=== PATIENT | male | born 1960 | race Caucasian/White ===

== ENCOUNTER 2016-08-04 00:26 | Emergency (ER) | payer OTHER ==
[2016-08-04] MEDS ORDERED: diphenhydrAMINE INJ 50 MG/ML VIAL IM STA (00:51)
[2016-08-04] MEDS ORDERED: diphenhydrAMINE INJ 50 MG/ML VIAL ONE (00:53)
== END 2016-08-04 01:41 | disposition home or self-care (01) ==
DX: L50.0 Allergic urticaria (principal)

== ENCOUNTER 2016-09-09 11:32 | Outpatient (CLI) | payer OTHER | END 2016-09-09 11:33 | disposition home or self-care (01) | DX: M54.5 Low back pain (principal) ==

== ENCOUNTER 2017-09-15 09:56 | Day surgery (SDC) | payer OTHER ==
[2017-09-15] MEDS ORDERED: LACTATED RINGERS 1,000 ML IV ONE ×2 (10:33→12:00)
[2017-09-15] MEDS ORDERED: MIDAZOLAM 2 MG/2 ML VIAL IVP ONE (11:12)
[2017-09-15] MEDS ORDERED: fentaNYL 250 MCG/5 ML VIAL IVP ONE (11:12)
[2017-09-15] MEDS ORDERED: PROPOFOL 200 MG/20 ML VIAL IVP ONE (12:05)
[2017-09-15 12:31] VITALS: BP 111/75
== END 2017-09-15 09:57 | disposition home or self-care (01) ==
LOC: SDS 09:56
PROVIDERS: ATTEND Surgery
PROC: 0DBL8ZX Excision of Transverse Colon, Via Natural or Artificial Opening Endoscopic, Diagnostic (ICD-10-PCS; 2017-09-15)
PROC: 0DBH8ZX Excision of Cecum, Via Natural or Artificial Opening Endoscopic, Diagnostic (ICD-10-PCS; 2017-09-15)
PROC: 0DBK8ZX Excision of Ascending Colon, Via Natural or Artificial Opening Endoscopic, Diagnostic (ICD-10-PCS; principal; 2017-09-15 11:15)
DX: Z12.11 Encounter for screening for malignant neoplasm of colon (principal); D12.0 Benign neoplasm of cecum; D12.2 Benign neoplasm of ascending colon; D12.3 Benign neoplasm of transverse colon; K64.8 Other hemorrhoids
CPT/HCPCS: 45384; J3010; J7120

== ENCOUNTER 2017-10-15 13:05 | Outpatient (CLI) | payer OTHER ==
[~2017-10-15 13:05] MED LIST: GADOBUTROL 7.5 MMOL/7.5 ML VIAL ONE
--- NOTE | 2017-10-16 12:27 | MRI Report ---
Procedure Date: 10/15/2017 Accession Number: [id number] / [id number] Procedure: MRI - Lumbar Spine W/WO CPT Code: FULL RESULT: EXAM: MRI LUMBAR SPINE WITHOUT AND WITH CONTRAST EXAM DATE: 10/15/2017 02:09 PM. CLINICAL HISTORY: Low back pain. L5-S1 fusion 2 years ago. COMPARISONS: Lumbar spine plain films 09/09/2016. TECHNIQUE: Multiplanar, multisequence T1-weighted and fluid-sensitive sequences of the lumbar spine from T12 to S1 before and after administration of intravenous contrast. Other: None. IV contrast: 7.5 mL Gadavist. FINDINGS: Spinal Cord: The conus terminates at L1. The conus medullaris and cauda equina are unremarkable. The spinal canal is adequate. No abnormal enhancement is seen. Alignment: No scoliosis or spondylolisthesis. Bone Marrow: Five [id number] lumbar vertebral bodies are assumed. No gross fractures or bone lesions. No bone marrow edema or abnormal enhancement. Disk Levels/Facets: T12-L1: Unremarkable on sagittal series. L1-L2: Unremarkable. L2-L3: Unremarkable. L3-L4: Unremarkable. L4-L5: Mild loss of disk space height is seen. Mild circumferential disk bulge is noted. Small left lateral foraminal disk protrusion and annular fissure is seen. Effacement of exited left L4 nerve root lateral to the foramen is seen. No stenosis. L5-S1: Postoperative change from anterior interbody fusion is noted. Normal alignment. No stenosis. Spinal Canal: No enhancing masses within the spinal canal. No epidural abscess. Musculature: Normal. No edema, abnormal enhancement, or fatty atrophy. Other: The visualized retroperitoneum is unremarkable. IMPRESSION: 1. L5-S1: Postoperative change from anterior fusion. No stenosis. 2. L4-L5: Mild degenerative disk change. Left lateral foraminal disk protrusion and annular fissure. This effaces the exited left L4 nerve root lateral to the foramen. Comment: The following findings are so common in adults without low back pain that while we report their presence, they must be interpreted with caution and in the context of the clinical situation. (Reference Autumnk et al, Spine 2001) Prevalence of findings in patients without low back pain: Disk degeneration (any evidence): 92% Disk desiccation/T2 signal loss: 83% Disk height loss: 56% Disk bulge: 64% Disk protrusion: 32% Annular tear/high intensity zone: 38% RADIA
== END 2017-10-15 13:06 | disposition home or self-care (01) ==
LOC: DI 13:05
PROVIDERS: ATTEND Physician Assistant
DX: M51.26 Other intervertebral disc displacement, lumbar region (principal); M51.36 Other intervertebral disc degeneration, lumbar region
CPT/HCPCS: 72158; A9585

== ENCOUNTER 2018-04-14 14:37 | Outpatient (CLI) | payer OTHER ==
[2018-04-14 15:27] LABS: CREATININE 1.2 mg/dL (0.6-1.2)
== END 2018-04-14 14:38 | disposition home or self-care (01) ==
LOC: LAB 14:37
PROVIDERS: ATTEND Physician Assistant Medical
DX: Z79.899 Other long term (current) drug therapy (principal); B35.1 Tinea unguium
CPT/HCPCS: 36415; 82565; 84450; 84460

== ENCOUNTER 2018-05-20 11:49 | Outpatient (CLI) | payer OTHER ==
[2018-05-20 16:07] LABS: CREATININE 1.1 mg/dL (0.6-1.2)
== END 2018-05-20 11:50 | disposition home or self-care (01) ==
LOC: LAB 11:49
PROVIDERS: ATTEND Physician Assistant Medical
DX: B35.1 Tinea unguium (principal); Z79.899 Other long term (current) drug therapy
CPT/HCPCS: 36415; 82565; 84450; 84460

== ENCOUNTER 2018-07-13 08:00 | Outpatient (CLI) | payer OTHER | END 2018-07-13 23:59 | LOC: LAB.R 08:00 | PROVIDERS: ATTEND Internal Medicine | DX: J02.9 Acute pharyngitis, unspecified (principal) | CPT/HCPCS: 87070; 87430 ==

== ENCOUNTER 2018-07-14 13:51 | Outpatient (CLI) | payer OTHER ==
[2018-07-14 14:13] LABS: CREATININE 1.1 mg/dL (0.6-1.2)
== END 2018-07-14 13:52 | disposition home or self-care (01) ==
LOC: LAB 13:51
PROVIDERS: ATTEND Physician Assistant Medical
DX: B35.1 Tinea unguium (principal); Z79.899 Other long term (current) drug therapy
CPT/HCPCS: 36415; 82565; 84450; 84460

== ENCOUNTER 2021-03-06 12:53 | Emergency (ER) | payer OTHER ==
[2021-03-06 13:03] VITALS: BP 143/79
[2021-03-06] MEDS ORDERED: HYDROmorphone 1 MG/ML CARPUJECT IM STA (15:13)
--- NOTE | 2021-03-06 15:18 | ED Physician Documentation ---
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 He has a history of chronic back pain and has undergone an L5 is S1 disc fusion. He recently spent 3 weeks in [facility] where he was hiking, traveling and was on some bumpy boat rides but denies any falls or trauma. He flew back from [facility] to [facility] yesterday. He reports that once he landed at [facility] he had severe right-sided low back pain. This is worse than his normal. He does see a paint technician but is out of his Newberry as he ran out while traveling. He has been unable to get in touch with his paint technician. Denies any saddle anesthesia or fevers. He has no loss of bowel or bladder function or incontinence. No paresthesias or leg weakness. Review of Systems Constitutional: denies: Fever, Chills Eyes: reports: Reviewed and negative Nose: reports: Reviewed and negative Throat: reports: Reviewed and negative Cardiac: reports: Reviewed and negative Respiratory: reports: Reviewed and negative GI: denies: Abdominal Pain, Nausea, Vomiting : denies: Dysuria, Frequency, Hematuria Skin: reports: Reviewed and negative Musculoskeletal: reports: Back pain. denies: Extremity pain, Joint pain Neurologic: denies: Generalized weakness, Focal weakness, Numbness, Syncope, Headache Psychiatric: reports: Reviewed and negative PD PAST MEDICAL HISTORY - Past Medical History Cardiovascular: None Respiratory: None Endocrine/Autoimmune: None GI: Colon polyps : None HEENT: None Psych: None Musculoskeletal: Chronic back pain Derm: None - Past Surgical History Past Surgical History: Yes General: Colonoscopy Ortho: Spine surgery, Other - Present Medications Home Medications: Ambulatory Orders Medication Instructions Recorded Confirmed diphenhydrAMINE [Benadryl] 50 mg PO ONCE 08/04/16 08/04/16 HYDROcod/ACETAM 5/325 [Newberry 5/325] 1 - 2 ea PO Q6H PRN 09/15/17 09/15/17 methocarbamoL [Methocarbamol] 750 mg PO BID PRN #15 tablet 03/06/21 - Allergies Allergies/Adverse Reactions: Allergies Allergy/AdvReac Type Severity Reaction Status Date / Time No Known Drug Allergies Allergy Verified 03/06/21 13:03 - Social History Does the pt smoke?: No Smoking Status: Never smoker Does the pt drink ETOH?: No Does the pt have substance abuse?: No - Immunizations Immunizations are current?: Yes - POLST Patient has POLST: No PD ED PE EXPANDED - General General: Alert, In Pain - Cardiac Cardiac: Regular Rate, Radial strong equal, Pedal strong equal, Cap refill < 2 sec - Respiratory Respiratory: Clear to ausultation david. No: Distress, Labored - Abdomen Abdomen: Normal Bowel sounds. No: Tender to palpation - Back Back: Soft tissue tenderness (right lower paraspinous tenderness. Motor strength 5/5 BLE. No parathesias. 2+ patellar reflexes bilaterally. unassisted gait). No: Vertebral tenderness - Neuro Neuro: Alert and Oriented X 3, CNII-XII intact - GCS Eye Opening: Spontaneous Motor: Obeys Commands Verbal: Oriented Total: 15 Results - Vitals Vitals: Vital Signs - 24 hr 03/06/21 13:01 Temperature 36.1 C L Heart Rate 92 Respiratory 16 Rate Blood Pressure 143/79 H O2 Saturation 100 Oxygen O2 Source Room air - Labs Labs: Laboratory Tests 03/06/21 15:23 Urine Color YELLOW Urine Clarity CLEAR Urine pH 6.0 Ur Specific [place] 1.025 Urine Protein NEGATIVE Urine Glucose (UA) NEGATIVE Urine Ketones NEGATIVE Urine Occult Blood NEGATIVE Urine Nitrite NEGATIVE Urine Bilirubin NEGATIVE Urine Urobilinogen 0.2 (NORMAL) Ur Leukocyte Esterase NEGATIVE Ur Microscopic Review NOT INDICATED Urine Culture Comments NOT INDICATED PD MEDICAL DECISION MAKING - ED course Complexity details: reviewed results, re-evaluated patient, d/w patient ED course: 60-year-old male who has a history of acute on chronic low back pain presents the emergency department with worsening right-sided back pain after sitting in an airplane for 6 hours when traveling home from [facility]. He also had fairly strenuous physical activity while in [facility] which he thinks may have exacerbated the pain. He does have a pain contract in place and is currently out of his New[place]. The patient is fairly adamant that this is an exacerbation of his chronic pain. He declined CT imaging today. Urine was checked to rule out hematuria or signs of infection and that was reassuringly negative. He is able to ambulate with no assistance. He was given some Dilaudid here in the ER with moderate relief of symptoms. He will be discharged with prescription for methocarbamol. He also received a one- time dose of a steroid here. With the exception of this age he has no back pain red flags. Emergent return precautions were otherwise discussed. He does have follow-up with his pain management doctor in 48 hours. Departure - Departure Disposition: 01 Home, Self Care Clinical Impression: Right low back pain Qualifiers: Chronicity: unspecified Sciatica presence: without sciatica Qualified Code(s): M54.50 - Low back pain, unspecified Condition: Stable Record reviewed to determine appropriate education?: Yes Instructions: ED Sprain Strain Lumbar Follow-Up: Aruna Simons MD [Primary Care Provider] - Prescriptions: methocarbamoL [Methocarbamol] 750 mg PO BID PRN #15 tablet PRN Reason: Spasms Comments: Rodolfo you were seen today in the emergency department for right-sided low back pain. This is most likely an exacerbation of your chronic back pain. Today in the emergency department you were given a dose of Dilaudid followed by 2 Vicodin. I do feel that you will benefit from the Decadron that was given today. This should help with pain and inflammation over the next 12 to 72 hours. It is important that we not prescribe you narcotics out of the emergency department as this could negate the pain contract you have in place with your pain doctor. Please fill the prescription for the methocarbamol a muscle relaxer. Continue to walk and be as active as you can. Gentle stretching may also be helpful. If at any point you have worsening symptoms, lose control of your bowel or bladder function, develop any fevers or have severe or different pain then please return to the ER for second evaluation. Your methocarbamol prescription was sent to the [facility] pharmacy
[2021-03-06 15:31] LABS: BILIRUBIN,URINE NEGATIVE (NEGATIVE); GLUCOSE, URINE (UA) NEGATIVE (NEGATIVE); KETONES,URINE (UA) NEGATIVE (NEGATIVE); LEUKOCYTE ESTERASE, URINE NEGATIVE (NEGATIVE); NITRITE,URINE NEGATIVE (NEGATIVE); OCCULT BLOOD,URINE NEGATIVE (NEGATIVE); PROTEIN,URINE NEGATIVE (NEGATIVE); UROBILINOGEN,URINE 0.2 (NORMAL) E.U./dL (NORMAL)
[2021-03-06 15:33] LABS: CLARITY,URINE CLEAR (CLEAR)
[2021-03-06] MEDS ORDERED: HYDROcod/ACETAM 5/325 MG TABLET PO STA (16:02)
[2021-03-06] MEDS ORDERED: CHERRY SYRUP 10 ML UDC PO ONE (16:05)
[2021-03-06] MEDS ORDERED: DEXAMETHASONE 10 MG/ML VIAL PO STA (16:05)
== END 2021-03-06 16:22 | disposition home or self-care (01) ==
LOC: ED 12:53
DX: M54.50 Low back pain, unspecified (principal); G89.29 Other chronic pain; Z98.1 Arthrodesis status
CPT/HCPCS: 81003; 96372; 99283; 99284; A9270; J1170; 81001; 87086